=== PATIENT | female | born 1945 | race African-American/Black ===

== ENCOUNTER → 2016-12-26 | Outpatient (CLI) | payer OTHER ==
--- NOTE | ~2016-12-26 | 2DMMODE ---
[facility] [address] [place] [address] 2 D/M-MODE ECHOCARDIOGRAM Name: ROGER WILKERSON DIDIER Room #: REG [facility]#: [id number] Admission: 12/26/16 Attend Phys: Tommy Butt Discharge: Date of : 47 Date of Service: 12/26/16 1749 Report #: [id number] THIS REPORT FOR: //name// APPROVED REPORT Study performed: 12/26/2016 13:00:16 EXAM: Comprehensive 2D, Doppler, and color-flow Echocardiogram Patient Location: Echo lab Blood Pressure: 151/89 mmHg Other Information Study Quality: Good Indications Hypertension/HDD 2D Dimensions RVDd: 30.70 mm LVEF(%): 60.91 (>50%) IVSd: 10.32 (7-11mm) LVOT Diam: 19.01 (18-24mm) LVDd: 38.80 mm PWd: 10.22 (7-11mm) Ascending Ao: 25.17 (22-36mm) LVDs: 26.36 (25-40mm) Aortic Root: 26.48 mm IVC: 10.00 mm Beavers's LVEF: 60.91 % Volumes Left Atrial Volume (Systole) Single Plane 4CH: 42.23 mL Single Plane 2CH: 49.32 mL LA ESV Index: 30.00 mL/m2 Aortic Valve AoV Peak Juan.: 1.74 m/s AO Peak Gr.: 12.18 mmHg LVOT Max P.83 mmHg LVOT Max V: 1.21 m/s QUETA Vmax: 1.96 cm2 Mitral Valve E/A Ratio: 0.8 MV Decel. Time: 243.21 ms MV E Max Juan.: 0.81 m/s MV A Juan.: 1.00 m/s [facility] [place] [address] 2 D/M-MODE ECHOCARDIOGRAM Name: ROGER WILKERSON DIDIER [id number] Admission: 12/26/16 Attend Phys: Tommy Butt Discharge: Date of : 47 Date of Service: 12/26/16 1749 Report #: [id number] PHT: 70.53 ms IVRT: 103.81 ms Pulmonary Valve PV Peak Juan.: 0.92 m/s PV Peak Gr.: 3.43 mmHg Pulmonary Vein P Vein S: 65.0 m/s P Vein A: 26.13 m/s P Vein D: 48.2 m/s P Vein A Dur.: 117.6 msec Tricuspid Valve TR Peak Juan.: 2.66 m/s RAP Estimate: 5.00 mmHg TR Peak Gr.: 28.34 mmHg Left Ventricle The left ventricle is normal size. There is normal LV segmental wall motion. There is normal left ventricular wall thickness. There is no ventricular septal defect visualized. The left ventricular systolic function is normal. The left ventricular ejection fraction is within the normal range. No left ventricle thrombus noted on this study. LVEF is 60%. Mild diastolic dysfunction is present (impaired relaxation pattern). Right Ventricle The right ventricle is normal size. There is normal right ventricular wall thickness. The right ventricular systolic function is normal. Atria The left atrium size is normal. Small PFO is noted. The right atrium size is normal. Aortic Valve The aortic valve is normal in structure. Trace aortic regurgitation. There is no aortic valvular vegetation. There is no aortic valvular stenosis. Mitral Valve The mitral valve is normal in structure. Trace mitral regurgitation. There is no evidence of mitral valve vegetations. No evidence of mitral valve stenosis. There is no evidence of mitral valve prolapse. Tricuspid Valve The tricuspid valve is normal in structure. There is no tricuspid valve stenosis. Mild tricuspid regurgitation. There is no tricuspid [address] [address] 2 D/M-MODE ECHOCARDIOGRAM Name: ROGER WILKERSON Room #: REG [facility]#: [id number] Admission: 12/26/16 Attend Phys: Tommy Butt Discharge: Date of : 47 Date of Service: 12/26/16 1749 Report #: [id number] valve vegetations. Pulmonic Valve The pulmonary valve is normal in structure. There is no pulmonic valvular stenosis. Trace to mild pulmonic regurgitation. There is no pulmonic valve vegetations. Great Vessels The aortic root is normal in size. The ascending aorta is normal in size. IVC is normal in size and collapses >50% with inspiration. The pulmonary artery is normal. Pericardium There is no pericardial effusion. There is no pleural effusion. <Conclusion> The left ventricle is normal size. LVEF is 60%. The aortic valve is normal in structure. Trace aortic regurgitation. The mitral valve is normal in structure. Trace mitral regurgitation. The tricuspid valve is normal in structure. Mild tricuspid regurgitation. The pulmonary valve is normal in structure. Trace to mild pulmonic regurgitation. <ELECTRONICALLY SIGNED> By: Tommy Alicea MD 12/26/16 1749 [id number] Tommy Alicea MD /INF
== END ==
LOC: CATH 09:31
DX: I10 Essential (primary) hypertension (principal); I08.3 Combined rheumatic disorders of mitral, aortic and tricuspid valves

== ENCOUNTER → 2020-03-18 | Outpatient (CLI) | payer OTHER | LOC: SJCVC 10:16 | PROVIDERS: ATTEND Internal Medicine | DX: R94.31 Abnormal electrocardiogram [ECG] [EKG] (principal); I49.1 Atrial premature depolarization; I10 Essential (primary) hypertension; E78.5 Hyperlipidemia, unspecified; K21.9 Gastro-esophageal reflux disease without esophagitis; Z79.899 Other long term (current) drug therapy ==

== ENCOUNTER → 2020-04-01 | Outpatient (CLI) | payer OTHER | LOC: SJCVCIMAG 03-31 07:42 | PROVIDERS: ATTEND Internal Medicine | DX: I08.1 Rheumatic disorders of both mitral and tricuspid valves (principal) ==

== ENCOUNTER → 2020-05-10 | Outpatient (CLI) | payer OTHER | LOC: SJCVC 13:57 | PROVIDERS: ATTEND Internal Medicine | DX: R94.31 Abnormal electrocardiogram [ECG] [EKG] (principal); I10 Essential (primary) hypertension; K21.9 Gastro-esophageal reflux disease without esophagitis; M17.12 Unilateral primary osteoarthritis, left knee; Z79.82 Long term (current) use of aspirin; Z79.899 Other long term (current) drug therapy; Z82.49 Family history of ischemic heart disease and other diseases of the circulatory system ==

== ENCOUNTER → 2020-05-20 | Outpatient (CLI) | payer OTHER | LOC: SJCVCIMAG 09:23 | PROVIDERS: ATTEND Internal Medicine | DX: I49.3 Ventricular premature depolarization (principal); I10 Essential (primary) hypertension; Z79.899 Other long term (current) drug therapy ==